=== PATIENT | female | born 1990 | race Caucasian/White ===

== ENCOUNTER 2022-11-08 04:10 | Emergency (ER) | payer OTHER ==
[~2022-11-08] VITALS: Ht 175.3 cm; Wt 70.5 kg
[2022-11-08 05:26] VITALS: BP 117/73
== END 2022-11-08 05:15 | disposition left against medical advice (07) ==
LOC: ED 04:10
DX: Z03.821 Encounter for observation for suspected ingested foreign body ruled out (principal); Z53.21 Procedure and treatment not carried out due to patient leaving prior to being seen by health care provider
CPT/HCPCS: 36415; 71046; 84703; 99283-25